=== PATIENT | female | born 1945 | race African-American/Black ===

== ENCOUNTER 2023-04-29 09:27 | Emergency (ER) | payer MEDICARE, OTHER ==
[~2023-04-29] VITALS: Ht 160 cm; Wt 50.0 kg
[2023-04-29 10:11] LABS: HEMATOCRIT 29.8 % (36-46); HEMOGLOBIN 9.3 g/dL (12.0-16.0); LYMPHOCYTES # (AUTO) 1.5 K/uL (1.0-4.8); LYMPHOCYTES % (AUTO) 11.5 % (22.0-44.0); MEAN CORPUSCULAR VOLUME 74 fL (80-100); MONOCYTES # (AUTO) 1.6 K/uL (0.1-1.0); MONOCYTES % (AUTO) 11.6 % (2.0-9.0); NEUTROPHILS # (AUTO) 9.8 K/uL (1.8-7.7); NEUTROPHILS % (AUTO) 72.9 % (40.0-70.0); PLATELET COUNT (AUTO) 561 K/uL (150-450); RED BLOOD CELL COUNT(AUTO) 4.02 MIL/uL (4.00-5.20); RED CELL DISTRIBUTION WIDTH 15.4 % (11.5-14.5)
[2023-04-29] MEDS ORDERED: EPINEPHrine 1:10,000 [1 MG/10 ML] SYRINGE SQ ONE (10:15)
[2023-04-29 10:21] LABS: ANION GAP 3 mmol/L (8-16); CALCIUM, TOTAL 11.5 mg/dL (8.8-10.5); CARBON DIOXIDE 32 mmol/L (22-29); CHLORIDE 97 mmol/L (98-107); CREATININE 0.66 mg/dL (0.60-1.30); GLOMERULAR FILTR. RATE CALC > 60 mL/min (>60); GLUCOSE,RANDOM 169 mg/dL (70-110); POTASSIUM 3.9 mmol/L (3.5-5.1); SODIUM SERUM 132 mmol/L (136-145)
[2023-04-29 10:27] LABS: ALANINE AMINOTRANSFERASE 23 U/L (12-78); ALBUMIN 2.3 g/dL (3.4-5.0); ALKALINE PHOSPHATASE 81 U/L (46-116); ASPARTATE AMINOTRANSFERASE 15 U/L (15-37); BILIRUBIN,TOTAL 0.1 mg/dL (0.1-1.0); TOTAL PROTEIN, SERUM 7.5 g/dL (6.4-8.2)
[2023-04-29 10:29] LABS: LACTIC ACID 1.6 mmol/L (0.4-2.0)
[2023-04-29] MEDS ORDERED: SODIUM CHLORIDE 0.9% 1,000 ML IV ONE (12:00)
[2023-04-29] MEDS ORDERED: ONDANSETRON HCL 4 MG/2 ML VIAL IVP ONE (12:00)
[2023-04-29 12:15] LABS: COVID AG,FIA SOURCE NASOPHARYNGEAL
[2023-04-29 12:41] LABS: INR 1.2 (0.9-1.1); PROTHROMBIN TIME 12.4 SEC (9.4-11.6)
[2023-04-29 13:15] VITALS: TEMP 99.2
[2023-04-29] MEDS ORDERED: FentaNYL CITRATE PF 100 MCG/2 ML VIAL ONE (14:13)
[2023-04-29] MEDS ORDERED: FentaNYL CITRATE PF 100 MCG/2 ML VIAL IVP ONE (14:15)
[2023-04-29 14:33] VITALS: BP 131/76; PULSE 65; RESP 16
== END 2023-04-29 14:44 | disposition short-term general hospital (02) ==
LOC: EMS 09:27
DX: C06.9 Malignant neoplasm of mouth, unspecified (principal); R04.1 Hemorrhage from throat; E43 Unspecified severe protein-calorie malnutrition; R11.2 Nausea with vomiting, unspecified; R62.7 Adult failure to thrive; D64.9 Anemia, unspecified; E11.9 Type 2 diabetes mellitus without complications; Z98.890 Other specified postprocedural states; Z88.8 Allergy status to other drugs, medicaments and biological substances; Z20.822 Contact with and (suspected) exposure to COVID-19
CPT/HCPCS: 99291; 96374; 71045; 96361; 96375; 87426; 80053; 83605; 84484; 85025; 85610; 36415; 93005; 96372; J0171; J3010; J2405; J7030